=== PATIENT | female | born 1930 | race Caucasian/White ===

== ENCOUNTER 2017-02-09 08:37 | Emergency (ER) | payer MEDICARE ==
[2017-02-09] MEDS ORDERED: DILTIAZEM HCL 125 MG/25 ML VIAL IV ONE ×2 (09:47→10:14)
[2017-02-09 09:49] LABS: BASOPHILS 0.5 % (0.0-2.0); EOSINOPHILS 2.1 % (0.0-6.0); EOSINOPHILS# 0.2 X 10^3uL (0.0-0.4); HEMATOCRIT 41.4 % (36.0-48.0); HEMOGLOBIN 13.5 g/dL (12.0-16.0); LYMPHOCYTES 7.8 % (20.0-40.0); LYMPHOCYTES# 0.8 X 10^3uL (0.8-3.8); MEAN CELL VOLUME 84.5 fL (80.0-100.0); MEAN CORPUS. HGB CONCENTRATION 32.7 g/dL (32.0-36.0); MEAN CORPUSCULAR HEMOGLOBIN 27.6 pg (29.0-35.0); MEAN PLATELET VOLUME 9.7 fL (7.4-10.4); MONOCYTES 4.7 % (2.0-10.0); MONOCYTES# 0.5 X 10^3uL (0.2-1.0); NEUTROPHILS 84.9 % (54.0-75.0); NEUTROPHILS# 8.3 X 10^3uL (2.6-6.7); WHITE BLOOD COUNT 9.8 X 10^3uL (3.9-10.7)
[2017-02-09 09:52] LABS: BLOOD UREA NITROGEN 27 mg/dL (7-17); CHLORIDE 106 mmol/L (98-107); CREATININE 0.7 mg/dL (0.5-1.0); GLUCOSE 109 mg/dL (70-100); MAGNESIUM 2.1 mg/dL (1.6-2.3); PLATELET COUNT 744 X 10^3uL (130-440); POTASSIUM 4.1 mmol/L (3.5-5.1); SODIUM 140 mmol/L (137-145)
[2017-02-09 09:59] LABS: INR 3.1
[2017-02-09 10:03] LABS: TROPONIN I < 0.012 ng/mL (0.00-0.034)
--- NOTE | 2017-02-09 11:36 | ER NURSING DOCUMENTATION ---
Nurse's Notes [facility] Name:Delmis Valdes Age:86 yrs Sex:Female :1930 Arrival Date:02/09/2017 Time:08:37 BedTrauma-C Private MD: Diagnosis:Atrial Fibrillation with Rapid Ventricular Response Presentation: 02/09 08:39 Presenting complaint: Patient states: irregular heartbeat. Transition of care: Home. lp 08:39 Acuity: NITA 2 lp 08:39 Method Of Arrival: Private Vehicle lp Triage Assessment: 08:43 General: Appears in no apparent distress, Behavior is appropriate for age. Pain: Denies lp pain. EENT: No deficits noted. Neuro: Level of Consciousness is awake, alert, Oriented to person, place, time, event, Fleet Manager/Dispatch are equal bilaterally Moves all extremities. Gait is steady, Speech is normal, Facial symmetry appears normal. Cardiovascular: Heart tones S1 S2 Murmur present Rhythm is atrial fibrillation. Respiratory: No deficits noted. Breath sounds are clear bilaterally. Reports shortness of breath on exertion. GI: Bowel sounds present X 4 quads. : No deficits noted. Derm: Skin is intact, is healthy with good turgor, Skin is dry, Skin is pink, warm & dry. Historical: - Allergies: No known drug Allergies; - Home Meds: 1. aspirin 81 mg oral tab 1 tab once daily 2. atorvastatin 20 mg oral tab 1 tab once daily at bedtime 3. Lasix 80 mg oral tab 1 tab once daily 4. Sotalol Oral 5. potassium chloride 10 mEq oral cpER 1 cap 3 times per day 6. Coumadin 2.5 mg oral tab 1 tab once daily 7. clonazepam 1 mg oral tab 1 tab one at night - PMHx: CVA; Slurred Speech (September 28, 2016); DEPRESSION; Closed Head Injury w/o Cranial Wound, Unspec State LOC (October 09, 2016); Knee Hematoma (October 15, 2016); Knee Contusion (October 15, 2016); - PSHx: AORTIC VALVE REPLACEMENT; - Tetanus: < 10 years. - Ebola Screening: : Patient negative for fever greater than or equal to 101.5 degrees Fahrenheit, and additional compatible Ebola Virus Disease symptoms. Patient denies exposure to infectious person. Patient denies travel to an Ebola-affected area in the 21 days before illness onset. . - Immunization history: Pneumococcal vaccine is up to date, Flu Vaccine < 1 year. - Social history: Smoking status: unknown if patient ever smoked tobacco. Screenin:44 Infectious Disease Risk None. Abuse screen: Denies threats or abuse. Denies injuries lp from another. Nutritional screening: No deficits noted. Assessment: 09:44 See Triage Assessment done by same RN. lp Vital Signs: 08:43 BP 124 / 94 (auto/); lp 08:44 Pulse 126 MON; Resp 20; Pulse Ox 95% ; lp 08:59 Pulse 103 MON; Resp 18; Pulse Ox 91% ; lp 09:00 BP 116 / 75 (auto/); lp 09:39 Pulse 93 MON; Resp 28; Pulse Ox 93% ; lp 09:40 BP 118 / 75 (auto/); lp 09:44 Pulse 101 MON; Resp 19; Pulse Ox 91% ; lp 09:50 BP 126 / 73 (auto/); lp 09:54 Pulse 109 MON; Resp 16; Pulse Ox 90% ; lp 10:00 BP 107 / 77 (auto/); lp 10:04 Pulse 130 MON; Resp 17; Pulse Ox 89% ; lp 10:10 BP 101 / 68 (auto/); lp 10:19 Pulse 101 MON; Resp 26; Pulse Ox 90% ; lp 11:05 BP 101 / 66; Pulse 98; Resp 16; Pulse Ox 89% on R/A; lp 11:12 BP 110 / 70; Pulse 103; Resp 16; Pulse Ox 90% on R/A; lp ED Course: 08:38 Patient arrived in ED. cj 08:39 Erica Courtney, RN is Primary Nurse. lp 08:39 Triage completed. lp 08:40 Cruz Cordova MD is Attending Physician. jm 08:[address] Cordova notified. lp 09:30 Port Xray Completed. tt 09:32 CHEST; SINGLE VIEW [id number] In Process Unspecified. EDMS 09:44 Valuables Remains with patient Patient has correct armband on for positive lp identification. Placed in gown. Bed in low position. Call light in reach. Side rails up X2. Cardiac Monitoring On for Nurse Monitoring only. Pulse Ox - RN Monitoring Only NIBP On - RN Monitoring Only. 10:10 EKG attached lp 11:07 Carrillo Rice MD is Referral Physician. mick Administered Medications: 09:40 Drug: NS 0.9% 1000 ml; Route: IV; Rate: bolus; Site: right hand; lp 10:11 Follow up: Response: No adverse reaction; No change in condition; IV Status: Completed lp infusion; IV Intake: 1000ml 10:05 Drug: Diltiazem 10 mg; Route: IVP; Infused Over: 5 mins; Site: right hand; lp 10:54 Follow up: Response: No adverse reaction; Cardiac rhythm is unchanged lp Intake: 10:11 IV: 1000ml; Total: 1000ml. lp Outcome: 11:07 Discharge ordered by . mick 11:22 Discharged to home ambulatory. lp 11:23 Condition: stable lp 11:23 Instructed on discharge instructions, follow up and referral plans. medication usage. 11:35 Patient left the ED. lp 02/10 10:55 Discharge F/U Call: Unable to reach: no answer non-working number lp Signatures: Dispatcher [employer] EDMS Erica Courtney RN RN Cruz Garner MD MD jm Strickland, Mary ms Terriere, Prema Myles
--- NOTE | 2017-02-09 11:36 | ER PHYSICIAN DOCUMENTATION ---
Physician Documentation [facility] Name:Delmis Valdes Age:86 yrs Sex:Female :1930 Arrival Date:02/09/2017 Time:08:37 BedTrauma-C Private MD: Cruz Nolasco Disposition: 02/09/17 11:07 Discharged to Home/Self Care. Impression: Atrial Fibrillation with Rapid Ventricular Response. - Condition is Good. - Discharge Instructions: ATRIAL FIBRILLATION. - Prescriptions for diltiazem HCl 120 mg Oral capsule, extended release - take 1 capsule by ORAL route once daily; 10 capsule. - Medical Reconciliation form form. - Follow up: Carrillo Rice MD; When: Thursday at . ; Reason: Continuance of care. - Problem is new. - Symptoms have improved. HPI: 02/09 10:55 This 86 yrs old Female presents to ER via Private Vehicle with complaints of jm Palpitations. 10:55 The patient presents with a history of irregular heart beat, heart racing. Context: The jm symptoms occur at rest. Onset: The symptom(s)/episode began/occurred yesterday, and became worse today. Duration: The patient or guardian reports a single episode, that is still ongoing. Modifying factors: The symptoms are alleviated by nothing. Associated signs and symptoms: Pertinent negatives: anxiety, fever, lightheadedness, nausea. Severity of symptoms: in the emergency department the symptoms are unchanged. The patient has experienced a previous episode. The patient has not recently seen a physician. 86 yo F w significant cardiac hx here for irregular HR. Pt's noted it all last night into this AM. Pt denies any pain or SOB. . Historical: - Allergies: No known drug Allergies; - Home Meds: 1. aspirin 81 mg oral tab 1 tab once daily 2. atorvastatin 20 mg oral tab 1 tab once daily at bedtime 3. Lasix 80 mg oral tab 1 tab once daily 4. Sotalol Oral 5. potassium chloride 10 mEq oral cpER 1 cap 3 times per day 6. Coumadin 2.5 mg oral tab 1 tab once daily 7. clonazepam 1 mg oral tab 1 tab one at night - PMHx: CVA; Slurred Speech (September 28, 2016); DEPRESSION; Closed Head Injury w/o Cranial Wound, Unspec State LOC (October 09, 2016); Knee Hematoma (October 15, 2016); Knee Contusion (October 15, 2016); - PSHx: AORTIC VALVE REPLACEMENT; - Tetanus: < 10 years. - Ebola Screening: : Patient negative for fever greater than or equal to 101.5 degrees Fahrenheit, and additional compatible Ebola Virus Disease symptoms. Patient denies exposure to infectious person. Patient denies travel to an Ebola-affected area in the 21 days before illness onset. . - Immunization history: Pneumococcal vaccine is up to date, Flu Vaccine < 1 year. - Social history: Smoking status: unknown if patient ever smoked tobacco. ROS: 10:58 Constitutional: Negative for fatigue, fever, malaise. jm 10:58 Eyes: Negative for blurry vision. 10:58 Cardiovascular: Positive for palpitations, Negative for chest pain. 10:58 Respiratory: Negative for cough, shortness of breath. 10:58 MS/extremity: Negative for swelling, tenderness. 10:58 Neuro: Negative for numbness, weakness. Exam: 10:58 Constitutional: The patient appears alert, awake, comfortable. jm 10:58 Eyes: Periorbital structures: appear normal, Conjunctiva: normal. 10:58 ENT: Mouth: is normal, Voice: is normal. 10:58 Cardiovascular: Rate: tachycardic, Rhythm: irregularly irregular, Pulses: no pulse deficits are appreciated. 10:58 Respiratory: Respirations: normal, Breath sounds: are normal. 10:58 Abdomen/GI: Bowel sounds: normal, Palpation: abdomen is soft and non-tender. 10:58 Back: pain, is absent, CVA tenderness, that is mild. 10:58 Musculoskeletal/extremity: DVT Exam: No signs of deep vein thrombosis. Calves: are non-tender, have equal circumference. 10:58 Skin: Appearance: Color: pink, no rash present. 10:58 Neuro: Mentation: is normal, Memory: is normal. 10:58 Psych: Behavior/mood is pleasant, cooperative, Affect is calm. Vital Signs: 08:43 BP 124 / 94 (auto/); lp 08:44 Pulse 126 MON; Resp 20; Pulse Ox 95% ; lp 08:59 Pulse 103 MON; Resp 18; Pulse Ox 91% ; lp 09:00 BP 116 / 75 (auto/); lp 09:39 Pulse 93 MON; Resp 28; Pulse Ox 93% ; lp 09:40 BP 118 / 75 (auto/); lp 09:44 Pulse 101 MON; Resp 19; Pulse Ox 91% ; lp 09:50 BP 126 / 73 (auto/); lp 09:54 Pulse 109 MON; Resp 16; Pulse Ox 90% ; lp 10:00 BP 107 / 77 (auto/); lp 10:04 Pulse 130 MON; Resp 17; Pulse Ox 89% ; lp 10:10 BP 101 / 68 (auto/); lp 10:19 Pulse 101 MON; Resp 26; Pulse Ox 90% ; lp 11:05 BP 101 / 66; Pulse 98; Resp 16; Pulse Ox 89% on R/A; lp 11:12 BP 110 / 70; Pulse 103; Resp 16; Pulse Ox 90% on R/A; lp MDM: 08:40 Patient medically screened. 10:10 EKG attached lp 10:59 Differential diagnosis: arrythmia. Data reviewed: vital signs, nurses notes, old medical records, lab test result(s), EKG, radiologic studies, and as a result, I will initiate a consult, with a brim cutter. Test interpretation: by ED physician or midlevel provider: plain radiologic studies, ECG. Counseling: I had a detailed discussion with the patient and/or guardian regarding: the historical points, exam findings, and any diagnostic results supporting the discharge/admit diagnosis, lab results, radiology results. 11:05 Physician consultation: Carrillo Rice MD regarding patient's condition, and will see patient Thursday. would like medications started, diltiazem 120mg ER Qday. . ED course: Pt's HR much better after dilt. Pt has been up to urinate w/o dizziness. Labs look ok. Dr. Rice would like to start dilt and f/u in 4 days. . 02/09 09:52 Order name: CBC AUTO DIF, MDIF/RMOR IF IND; Complete Time: 10: EDMS 02/09 10:00 Order name: PROTIME/INR; Complete Time: 10: EDMS 02/09 10:01 Order name: BASIC METABOLIC PANEL; Complete Time: 10: EDMS 02/09 10:01 Order name: MAGNESIUM; Complete Time: 10: EDMS 02/09 10:04 Order name: TROPONIN I; Complete Time: : EDMS 02/09 09:32 Order name: CHEST; SINGLE VIEW [id number] [facility] 02/10 09:08 Order name: CHEST; SINGLE VIEW [id number] [facility] 02/09 08:47 Order name: 12-lead EKG; Complete Time: 09:39 02/09 08:47 Order name: Iv Saline Lock; Complete Time: 09:39 02/09 08:47 Order name: Place Patient On Monitor; Complete Time: 09:39 02/09 08:47 Order name: Pulse Ox Continuous; Complete Time: :39 Dispensed Medications: 09:40 Drug: NS 0.9% 1000 ml; Route: IV; Rate: bolus; Site: right hand; lp 10:11 Follow up: Response: No adverse reaction; No change in condition; IV Status: Completed lp infusion; IV Intake: 1000ml 10:05 Drug: Diltiazem 10 mg; Route: IVP; Infused Over: 5 mins; Site: right hand; lp 10:54 Follow up: Response: No adverse reaction; Cardiac rhythm is unchanged lp Signatures: Erica Courtney RN RN lp Cruz Cordova MD MD
--- NOTE | 2017-02-10 07:25 | RADIOLOGY REPORT ---
A limited single portable view of the chest is compared with prior film dated . 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 The heart and vessels are unremarkable. The lung mirza are clear. No infiltrate, fluid or pneumothorax is seen. IMPRESSION: Stable postoperative changes. No acute cardiopulmonary abnormality is identified. MTDD
== END 2017-02-09 11:36 | disposition home or self-care (01) ==
LOC: ER 08:37
DX: I48.91 Unspecified atrial fibrillation (principal); Z86.73 Personal history of transient ischemic attack (TIA), and cerebral infarction without residual deficits; Z79.899 Other long term (current) drug therapy; Z95.2 Presence of prosthetic heart valve; Z79.82 Long term (current) use of aspirin; Z79.01 Long term (current) use of anticoagulants
CPT/HCPCS: 71010; 80048; 83735; 84484; 85025; 85610; 93010; 96361; 96374; 99283; 99285